=== PATIENT | female | born 1980 | race Caucasian/White ===

== ENCOUNTER → 2016-06-18 16:17 | Outpatient (CLI) | payer OTHER ==
[2015-01-04 12:41] VITALS: BMI 21.9
[~2016-06-18 16:17] MED LIST: ELAVIL75 MG PO; MACROBID100 MG PO
== END | disposition home or self-care (01) ==
LOC: D.MAMMO 09:30
DX: N63 Unspecified lump in breast (principal)

== ENCOUNTER → 2016-07-16 09:22 | Outpatient (CLI) | payer OTHER ==
[2015-01-04 12:41] VITALS: BMI 21.9
== END | disposition home or self-care (01) ==
LOC: D.US 09:22
DX: R92.8 Other abnormal and inconclusive findings on diagnostic imaging of breast (principal)

== ENCOUNTER → 2017-02-07 16:51 | Outpatient (CLI) | payer OTHER ==
[2015-01-04 12:41] VITALS: BMI 21.9
== END | disposition home or self-care (01) ==
LOC: D.MAMMO 01-16 08:30
DX: R92.8 Other abnormal and inconclusive findings on diagnostic imaging of breast (principal)